=== PATIENT | male | born 1965 | race African-American/Black ===

== ENCOUNTER 2017-06-24 00:35 | Emergency (ER) | payer MEDICAID ==
[~2017-06-24] VITALS: Ht 180.3 cm; Wt 96.0 kg
[2017-06-24 00:43] VITALS: BP 135/93
== END 2017-06-24 03:00 | disposition left against medical advice (07) ==
LOC: ER 00:42
DX: F41.0 Panic disorder [episodic paroxysmal anxiety] (principal); Z53.21 Procedure and treatment not carried out due to patient leaving prior to being seen by health care provider

== ENCOUNTER 2022-07-25 01:19 | Emergency (ER) | payer MEDICAID ==
[~2022-07-25] VITALS: Ht 180.3 cm; Wt 91.8 kg
[2022-07-25] MEDS ORDERED: HYDROCODONE/ACETAMINOPHEN 5/325MG TABLET PO ONE (04:15)
[2022-07-25] MEDS ORDERED: IBUP-2029 MT (06:39)
[2022-07-25] MEDS ORDERED: METH-653 MT (06:39)
[2022-07-25 06:46] VITALS: BP 139/98
== END 2022-07-25 06:45 | disposition home or self-care (01) ==
LOC: ER 01:29
DX: S09.8XXA Other specified injuries of head, initial encounter (principal); S13.8XXA Sprain of joints and ligaments of other parts of neck, initial encounter; S33.5XXA Sprain of ligaments of lumbar spine, initial encounter; I10 Essential (primary) hypertension; J44.9 Chronic obstructive pulmonary disease, unspecified; F41.9 Anxiety disorder, unspecified; F14.10 Cocaine abuse, uncomplicated; V43.52XA Car driver injured in collision with other type car in traffic accident, initial encounter; Y93.89 Activity, other specified; Y92.488 Other paved roadways as the place of occurrence of the external cause
CPT/HCPCS: 72070; 72100; 99284

== ENCOUNTER 2023-07-13 07:06 | Emergency (ER) | payer MEDICAID ==
[~2023-07-13] VITALS: Ht 180.3 cm; Wt 90.7 kg
[~2023-07-13 07:06] MED LIST: IBUP-2029 MT; METH-653 MT
[2023-07-13 07:23] VITALS: O2SAT 98
[2023-07-13] MEDS ORDERED: ACETAMINOPHEN WITH CODEINE 300/30MG TABLET PO ONE (08:15)
[2023-07-13 08:22] LABS: CHLORIDE 104 mEq/L (98-107); INDEX HEMOLYSI 2 (1-3); INDEX ICTERIC 1 (1-4); INDEX LIPEMIC 1 (1-3); POTASSIUM 3.5 mEq/L (3.5-5.1); SODIUM 136 mEq/L (136-145)
[2023-07-13 08:24] LABS: BASOPHILS % 0.7 % (0.0-2.0); LYMPHOCYTES % 14.2 % (20.0-50.0); MEAN CORPUSCULAR HEMOGLOBIN 30.7 pg (28.0-32.0); MEAN CORPUSCULAR HGB CONC 31.2 g/dL (31.0-37.0); MEAN CORPUSCULAR VOLUME 98.4 fL (80.0-94.0); MEAN PLATELET VOLUME 9.1 fl (7.4-10.4); MONOCYTES % 6.6 % (2.0-8.0); NEUTROPHILS % 76.5 % (40.0-76.0); PLATELET 255 x1000/uL (130-400); RED BLOOD CELL COUNT 4.57 mill/uL (4.7-6.1); RED CELL DISTRIBUTION WIDTH 14.1 % (11.6-14.6); WHITE BLOOD COUNT 17.2 x1000/uL (4.5-11.0)
[2023-07-13 08:31] LABS: ALANINE AMINOTRANSFERASE 18 IU/L (13-61); ALBUMIN 3.5 g/dL (3.4-5.0); ASPARTATE AMINOTRANSFERASE 20 IU/L (15-37); BILIRUBIN TOTAL 0.6 mg/dL (0.1-1.0); CALCIUM 8.6 mg/dL (8.5-10.1); CARBON DIOXIDE 24 mEq/L (21-32); CREATININE 1.8 mg/dL (0.6-1.3); GLUCOSE 80 mg/dL (70-105); UREA NITROGEN BLOOD 26 mg/dL (7-21)
[2023-07-13] MEDS ORDERED: TOPUD PO (09:02)
[2023-07-13] MEDS ORDERED: VALA100044 PO (09:02)
[2023-07-13 09:11] VITALS: BP 119/81; PULSE 77; RESP 18; TEMP 98.7
== END 2023-07-13 09:16 | disposition home or self-care (01) ==
LOC: ER 07:18
DX: F41.9 Anxiety disorder, unspecified (principal); J44.9 Chronic obstructive pulmonary disease, unspecified; I10 Essential (primary) hypertension; F14.90 Cocaine use, unspecified, uncomplicated; B00.9 Herpesviral infection, unspecified; M79.672 Pain in left foot; M79.671 Pain in right foot
CPT/HCPCS: 36415; 73620; 76705; 80053; 85025; 87070; 87430; 99284

== ENCOUNTER 2024-01-23 00:23 | Emergency (ER) | payer MEDICAID ==
[~2024-01-23] VITALS: Ht 177.8 cm; Wt 86.0 kg
[~2024-01-23 00:23] MED LIST changes: +TOPUD PO; +VALA100044 PO
[2024-01-23 00:32] VITALS: BP 152/92
[2024-01-23] MEDS ORDERED: METH-653 MT (02:25)
[2024-01-23] MEDS ORDERED: P50 MT (02:25)
[2024-01-23 02:31] VITALS: TEMP 98.8
[2024-01-23] MEDS: ACETAMINOPHEN 500MG TABLET PO ONE (02:31)
[2024-01-23] MEDS: PREDNISONE 20MG TABLET PO ONE (02:31)
[2024-01-23] MEDS: CYCLOBENZAPRINE 10MG TABLET PO ONE (02:31)
[2024-01-23 02:54] VITALS: PULSE 79; RESP 22; O2SAT 95
[2024-01-23] MEDS: ALBUTEROL (0.083%) 2.5MG/3ML NEB HHN ONE (02:54)
== END 2024-01-23 03:15 | disposition home or self-care (01) ==
LOC: ER 00:23
DX: S00.93XA Contusion of unspecified part of head, initial encounter (principal); S16.1XXA Strain of muscle, fascia and tendon at neck level, initial encounter; S39.012A Strain of muscle, fascia and tendon of lower back, initial encounter; F41.9 Anxiety disorder, unspecified; I10 Essential (primary) hypertension; F14.10 Cocaine abuse, uncomplicated; J44.1 Chronic obstructive pulmonary disease with (acute) exacerbation; V49.59XA Passenger injured in collision with other motor vehicles in traffic accident, initial encounter; Y93.89 Activity, other specified; Y92.89 Other specified places as the place of occurrence of the external cause; Y99.8 Other external cause status
CPT/HCPCS: 94640; 99284; J7512; Z7610 ×3

== ENCOUNTER 2024-12-06 01:55 | Emergency (ER) | payer MEDICAID ==
[~2024-12-06] VITALS: Ht 172.7 cm; Wt 69.0 kg
[~2024-12-06 01:55] MED LIST changes: +P50 MT
[2024-12-06 02:05] VITALS: BP 130/98; PULSE 107; RESP 18; TEMP 36.8; O2SAT 94
[2024-12-06] MEDS: PREDNISONE 20MG TABLET PO ONE (06:28)
[2024-12-06] MEDS ORDERED: P20 PO (06:31)
[2024-12-06] MEDS ORDERED: ALBU18HF2 IH (06:57)
[2024-12-06] MEDS ORDERED: IPRATROPIUM/ALBUTEROL 0.5-3(2.5)MG/3ML NEB HHN ONE (07:15)
== END 2024-12-06 07:00 | disposition home or self-care (01) ==
LOC: ER 01:55
DX: J44.1 Chronic obstructive pulmonary disease with (acute) exacerbation (principal); I10 Essential (primary) hypertension; F41.9 Anxiety disorder, unspecified; F10.90 Alcohol use, unspecified, uncomplicated; F14.90 Cocaine use, unspecified, uncomplicated; Z79.52 Long term (current) use of systemic steroids; Z79.624 Long term (current) use of inhibitors of nucleotide synthesis; Y90.9 Presence of alcohol in blood, level not specified
CPT/HCPCS: 99283; 71045; J7512

== ENCOUNTER 2025-08-07 15:59 | Emergency (ER) | payer MEDICAID ==
[~2025-08-07] VITALS: Ht 182.9 cm; Wt 75.0 kg
[~2025-08-07 15:59] MED LIST changes: +ALBU18HF2 IH; +IBUP-1455 MT; -IBUP-2029 MT; +P20 PO
[2025-08-07 16:02] VITALS: BP 123/70; PULSE 88; RESP 14; TEMP 97.4; O2SAT 100
== END 2025-08-07 19:12 | disposition left against medical advice (07) ==
LOC: ER 15:59
DX: R06.02 Shortness of breath (principal)
CPT/HCPCS: 99281